=== PATIENT | female | born 1960 | race Caucasian/White ===

== ENCOUNTER 2017-04-09 16:55 | Emergency (ER) | payer BC, OTHER ==
[~2017-04-09] VITALS: Ht 154.9 cm; Wt 93.9 kg
--- NOTE | 2017-04-09 17:30 | PHYS DOC ---
Adult General Chief Complaint Chief Complaint: MECHANICAL FALL HPI HPI Patient is a 57 year old F who presents with a head injury. Nelda was at the gym running in place when she lost her balance. She fell backwards hitting her head and was noted to have loss of consciousness. She did have bleeding from a laceration on the back of her head which stopped prior to arrival. She describes headache. She has no other associated symptoms. She has no other exacerbating or alleviating factors. Review of Systems Review of Systems Constitutional: Denies fever or chills [] Eyes: Denies change in visual acuity, redness, or eye pain [] HENT: Denies nasal congestion or sore throat [] Respiratory: Denies cough or shortness of breath [] Cardiovascular: No additional information not addressed in HPI [] GI: Denies abdominal pain, nausea, vomiting, bloody stools or diarrhea [] : Denies dysuria or hematuria [] Musculoskeletal: Denies back pain or joint pain [] Integument: Denies rash Neurologic: Denies focal weakness or sensory changes [] Endocrine: Denies polyuria or polydipsia [] All other systems were reviewed and found to be within normal limits, except as documented in this note. Family History Family History No pertinent family medical history was reported Current Medications Current Medications Current medications were reviewed Physical Exam Physical Exam Constitutional: Well developed, well nourished, no acute distress, non-toxic appearance. [] HENT: Normocephalic, bilateral external ears normal, oropharynx moist, no oral exudates, nose normal. [] Eyes: PERRLA, EOMI, conjunctiva normal, no discharge. [] Neck: Normal range of motion, no tenderness, supple, no stridor. [] Cardiovascular:Heart rate regular rhythm, Lungs & Thorax: Bilateral breath sounds clear to auscultation [] Abdomen: Bowel sounds normal, soft, no tenderness, no masses, no pulsatile masses. [] Skin: Warm, dry, no erythema, no rash. [] Laceration on the posterior scalp Back: No tenderness, no CVA tenderness. [] Extremities: No tenderness, no cyanosis, no clubbing, ROM intact, no edema. [] Neurologic: Alert and oriented X 3, normal motor function, normal sensory function, no focal deficits noted. [] Psychologic: Affect normal, judgement normal, mood normal. [] Current Patient Data Vital Signs Normal vital signs. Please review nursing documentation for specifics EKG EKG [] Radiology/Procedures Radiology/Procedures CT head Impressions: Possible tiny subarachnoid hemorrhage Course & Med Decision Making Course & Med Decision Making Pertinent Labs and Imaging studies reviewed. (See chart for details) Care was transferred to at 1800 Dragon Disclaimer Dragon Disclaimer This electronic medical record was generated, in whole or in part, using a voice recognition dictation system. Departure Departure: Impression: Primary Impression: Closed head injury with brief loss of consciousness Disposition: 05 XFER OTHER Condition: STABLE Referrals: NON,STAFF (PCP) Patient Instructions: Head Injury, Adult CHINO ROCHE MD Apr 09, 2017 17:30
--- NOTE | 2017-04-09 17:40 | RAD ---
CT head without contrast: HISTORY: Fall hitting back of head laceration possible scalp Axial images of the head were obtained without contrast The krishnan-white matter appears normal and symmetrical. There is a scalp hematoma posteriorly. There is no depressed skull fracture. There is subtle density seen in the interhemispheric fissure and anterior to the middle cerebral arteries. The irregular appearance suggests possible interdigitation of the sulci suggesting a tiny subarachnoid hemorrhage. There is no mass effect or hydrocephalus. IMPRESSION: Probable tiny acute subarachnoid hemorrhage secondary to trauma. No mass effect. PQRS Compliance Statement: One or more of the following individualized dose reduction techniques were utilized for this examination: 1. Automated exposure control 2. Adjustment of the mA and/or kV according to patient size 3. Use of iterative reconstruction technique Electronically signed by: Kwame Nava III, MD (04/09/2017 5:37 PM) [facility]
[2017-04-09] MEDS ORDERED: ONDANSETRON PF 4 MG/2 ML VIAL. IV ONE (19:30)
[2017-04-09] MEDS ORDERED: TETANUS AND DIPHTHERIA TOX/PF 0.5 ML VIAL. VAX IM ONE (19:30)
[2017-04-09 19:45] LABS: BASO % 0 % (0-3); EOS # 0.1 x10^3/uL (0.0-0.7); EOS % 1 % (0-3); HEMATOCRIT 39.8 % (36.0-47.0); HEMOGLOBIN 13.3 g/dL (12.0-15.5); LYMPH # 1.3 x10^3/uL (1.0-4.8); LYMPH % 12 % (24-48); MEAN CORPUSCULAR HEMOGLOBIN 30 pg (25-35); MEAN CORPUSCULAR HGB CONC 34 g/dL (31-37); MEAN CORPUSCULAR VOLUME 89 fL (79-100); MONO # 0.5 x10^3/uL (0.0-1.1); MONO % 5 % (0-9); NEUT % 82 % (31-73); PLATELET COUNT 202 x10^3/uL (140-400); RED BLOOD COUNT 4.47 x10^6/uL (3.50-5.40); RED CELL DISTRIBUTION WIDTH 13.3 % (11.5-14.5)
[2017-04-09 20:01] LABS: ALBUMIN 4.1 g/dL (3.4-5.0); ALBUMIN/GLOBULIN RATIO 1.4 (1.0-1.7); CALCIUM 8.8 mg/dL (8.5-10.1); GFR 57.4; POTASSIUM 4.2 mmol/L (3.5-5.1); TOTAL BILIRUBIN 0.4 mg/dL (0.2-1.0); TOTAL PROTEIN 7.1 g/dL (6.4-8.2)
[2017-04-09 20:50] VITALS: BP 143/80
== END 2017-04-09 21:16 | disposition short-term general hospital (02) ==
LOC: ER 16:55
DX: S06.9X1A Unspecified intracranial injury with loss of consciousness of 30 minutes or less, initial encounter (principal); W01.198A Fall on same level from slipping, tripping and stumbling with subsequent striking against other object, initial encounter; Y93.02 Activity, running; Y99.8 Other external cause status; Y92.89 Other specified places as the place of occurrence of the external cause
CPT/HCPCS: 12001; 36415; 70450; 80053; 85025; 85610; 85730; 90471; 90714; 96374; 96375; 99285; J2405; J3010